=== PATIENT | male | born 2000 | race Caucasian/White ===

== ENCOUNTER 2020-05-03 01:22 | Emergency (ER) | payer BC ==
[~2020-05-03] VITALS: Ht 170.2 cm; Wt 68.2 kg
[2020-05-03 01:29] VITALS: TEMP 98
[2020-05-03 02:16] LABS: COLLECTION METHOD CLEAN CATCH
[2020-05-03 02:27] LABS: MUCOUS Present /lpf; PH 6 (5-8); SQUAMOUS EPITHELIAL None Seen /hpf; URINE APPEARANCE Clear; URINE BACTERIA None Seen /hpf; URINE BILIRUBIN Negative (NEGATIVE); URINE BLOOD Negative (NEGATIVE); URINE COLOR Yellow; URINE GLUCOSE Negative (NEGATIVE); URINE KETONE 1+ (NEGATIVE); URINE LEUKOCYTE ESTERASE Negative (NEGATIVE); URINE NITRATE Negative (NEGATIVE); URINE PROTEIN(semi-quant) 1+ (NEGATIVE); URINE UROBILINOGEN Negative (NEGATIVE)
[2020-05-03] MEDS ORDERED: DOXYCYCLINE 10100 MG PO (03:55)
[2020-05-03 04:35] VITALS: BP 120/60; PULSE 88
== END 2020-05-03 04:40 | disposition home or self-care (01) ==
LOC: COL.ER 01:22
PROVIDERS: Emergency Medicine
DX: N45.1 Epididymitis (principal)
CPT/HCPCS: J0696; J1885